=== PATIENT | male | born 1955 | race Caucasian/White ===

== ENCOUNTER → 2016-10-24 | Outpatient (CLI) | payer OTHER ==
[~2016-10-24] MED LIST: ALLOPURINOL300 M1 PO; AMLODIPINE BES1 TAB PO; ATENOLOL/CHLORT1 TAB PO; BENTYL20 MG PO; CELEXA40 MG PO; FENOFIBRATE145 MG PO; JANUVIA100 MG PO; K-DUR 2020 MEQ PO; LORAZEPAM1 MG/TABLE PO; METFORMIN 500M500 M1 PO; METFORMIN500 MG PO; PRILOSEC OTC20 MG PO; PRILOSEC20 MG PO; QUETIAPINE FUM100 M2 PO
--- NOTE | 2016-10-25 09:12 | RADIOLOGY REPORT PS360 ---
[id number] [id number] COMPARISON: Left shoulder 04/29/2007 HISTORY: Shoulder TECHNIQUE: 3 views left shoulder FINDINGS: The clavicle is intact. There is prominent spurring the AC joint inferiorly this could certainly predispose to some degree of impingement syndrome. Humeral head and glenoid appear normal. There is no subacromial stenosis. There are no soft tissue calcifications. IMPRESSION: Prominent spurring the AC joint inferiorly which could be a cause for shoulder pain and/or impingement syndrome, spurring somewhat more prominent than on the previous study in 2007
== END ==
LOC: RAD 15:32
DX: M25.512 Pain in left shoulder (principal)

== ENCOUNTER 2017-01-05 13:12 | Day surgery (SDC) | payer OTHER ==
--- NOTE | 2017-01-05 15:41 | Operative Note ---
Upper GI Endoscopy Procedure date: 01/05/17 Date of : 51 Procedure:Upper GI Endoscopy Esophagogastroduodenoscopy with cold biopsies Indications: Mr. toro is a 61-year-old gentleman with chronic gastroesophageal reflux disease. He has been on omeprazole for 30 years. He has not had an endoscopy in 15 years. He did try reducing his Prilosec to every other day but started having breakthrough heartburn and reflux which occurs while supine. He reports no indigestion, bloating, belching or dysphagia. Performing Provider: Debbi Gregg MD Referring Provider: Gopal Joyce M.D. Sedation: Fentanyl 150 mg IV/Versed 9 mg IV Procedure: Prior to the procedure, a history and physical exam was performed, and patients medications and allergies were reviewed. The risks and benefits of the procedure and the sedation options and risks were discussed with the patient. All questions were answered and informed consent was obtained. The patient was brought to the procedure room. Patient identification and proposed procedure were verified by the physician and the nurse. The patient was placed in a left lateral decubitus position and the scope was passed under direct vision. Throughout the procedure, the patient's blood pressure, pulse, and oxygen saturations were monitored continuously. The endoscope was introduced through the mouth, and advanced to the second part of duodenum. The upper GI endoscopy was accomplished without difficulty. The patient tolerated the procedure well. Findings: The scope was passed directly into the upper esophagus and advanced to the third portion of the duodenum. The post bulbar duodenum was normal with normal mucosa and conniventes. There was some minor nodularity within the bulb suggestive of Bladimir's gland hypertrophy and cold biopsies were obtained. The scope was withdrawn through a normal duodenal bulb and pylorus into the stomach. There was some mild chronic gastritis of the stomach. The remainder of the antrum, body and fundus of the stomach were grossly normal. Upon retroflexion there was a 2 cm hiatal hernia. 2 biopsies were taken in the antrum and along the lesser curvature for histology. The scope was then withdrawn into the esophagus. There was at least 2 tongues of salmon-colored mucosa that were consistent with short segment Alvarez's esophagus. Narrow band imaging was utilized and there was no clear evidence of dysplasia. Multiple biopsies were obtained. There was no evidence of reflux esophagitis. Immediate complications: None EBL (ml): 0 Impression: 1. Short segment Alvarez's esophagus 2. Small 2 cm hiatal hernia 3. Mild chronic gastritis Recommendations: I will follow-up the biopsies. If there is evidence of Alvarez's esophagus, I would consider repeat surveillance endoscopy in 3 years. I would continue omeprazole on a long-term daily maintenance basis since Alvarez's esophagus is consistent with complicated gastroesophageal reflux disease. I would still consider minimally invasive antireflux surgery in the future. at [id number]
[2017-01-05 17:02] VITALS: BP 106/71
== END 2017-01-05 16:25 | disposition home or self-care (01) ==
LOC: SDC 13:12
PROVIDERS: Internal Medicine Gastroenterology
PROC: 0DB78ZX Excision of Stomach, Pylorus, Via Natural or Artificial Opening Endoscopic, Diagnostic (ICD-10-PCS; 2017-01-05)
PROC: 0DB68ZX Excision of Stomach, Via Natural or Artificial Opening Endoscopic, Diagnostic (ICD-10-PCS; 2017-01-05)
PROC: 0DB58ZX Excision of Esophagus, Via Natural or Artificial Opening Endoscopic, Diagnostic (ICD-10-PCS; 2017-01-05)
PROC: 0DB98ZX Excision of Duodenum, Via Natural or Artificial Opening Endoscopic, Diagnostic (ICD-10-PCS; principal; 2017-01-05 14:30)
DX: K21.0 Gastro-esophageal reflux disease with esophagitis (principal); K44.9 Diaphragmatic hernia without obstruction or gangrene; K22.70 Barrett's esophagus without dysplasia; K29.50 Unspecified chronic gastritis without bleeding; Z79.84 Long term (current) use of oral hypoglycemic drugs; Z79.899 Other long term (current) drug therapy